=== PATIENT | female | born 1955 | race Caucasian/White ===

== ENCOUNTER 2023-02-09 18:25 | Emergency (ER) | payer OTHER ==
[~2023-02-09] VITALS: Ht 162.6 cm; Wt 72.6 kg
[2023-02-09 18:39] VITALS: BP_SYST 151
--- NOTE | 2023-02-09 18:46 | NUR ---
Patient triaged and placed in waiting room. VSS and patient appears in no acute distress at this time. Accompanied by SELF, awaiting available bed, and MD notified of need for MSE.
--- NOTE | 2023-02-09 19:52 | NUR ---
Patient brought in complaining of right foot pain. denies any trauma. pain 410Z
--- NOTE | 2023-02-09 19:54 | NUR ---
ER Dr. ASHBY at bedside examining patient.
[2023-02-09] MEDS ORDERED: IBUPROFEN 800 MG TABLET PO ONE (20:00)
[2023-02-09] MEDS ORDERED: IBUP-1969 PO (20:21)
[2023-02-09] MEDS ORDERED: DICL20GE TP (20:21)
[2023-02-09 20:35] VITALS: BP_SYST 112
--- NOTE | 2023-02-09 20:35 | NUR ---
Patient given written and verbal discharge instructions and verbalizes understanding. ER MD discussed with patient the results and treatment provided. Patient in stable condition. ID arm band removed. Rx of VOLTAREN AND IBUPROFEN given. Patient educated on pain management and to follow up with PMD. Pain Scale 0/10 Opportunity for questions provided and answered. Medication side effect fact sheet provided.
== END 2023-02-09 20:35 | disposition home or self-care (01) ==
LOC: SED 18:25
DX: S93.601A Unspecified sprain of right foot, initial encounter (principal); Z88.0 Allergy status to penicillin; Z79.899 Other long term (current) drug therapy; W19.XXXA Unspecified fall, initial encounter; Y93.89 Activity, other specified; Y92.89 Other specified places as the place of occurrence of the external cause; Y99.8 Other external cause status
CPT/HCPCS: 99283